=== PATIENT | female | born 1980 | race Caucasian/White ===

== ENCOUNTER 2019-02-12 13:21 | Emergency (ER) | payer OTHER ==
[~2019-02-12] VITALS: Ht 170.2 cm; Wt 99.8 kg
[2019-02-12] MEDS ORDERED: NEURONTIN600 MG PO (14:00)
[2019-02-12] MEDS ORDERED: PROMS25 WY RECTAL (14:00)
[2019-02-12] MEDS ORDERED: EFFEXOR XR75 MG PO ×3 (14:00→14:02)
[2019-02-12] MEDS ORDERED: VENLAFAXINE HC150 MG PO (14:01)
[2019-02-12] MEDS ORDERED: MELATONIN1 MG PO (14:01)
[2019-02-12] MEDS ORDERED: ATORVASTATIN CA40 MG PO (14:02)
[2019-02-12] MEDS ORDERED: CYCLOBENZAPRINE5 MG PO (14:02)
[2019-02-12] MEDS ORDERED: METFORMIN HCL500 MG PO (14:02)
[2019-02-12] MEDS ORDERED: RESTORIL15 MG PO (14:03)
[2019-02-12 14:04] LABS: ABSOLUTE EOSINOPHILS 0.1 thou/uL (0.0-0.7); ABSOLUTE MONOCYTES 0.5 thou/uL (0.0-1.2); ABSOLUTE NEUTROPHILS 6.8 thou/uL (1.6-8.1); BASOPHILS 0.4 %; EOSINOPHILS 0.6 %; HEMATOCRIT 40.1 % (37.0-47.0); HEMOGLOBIN 13.5 gm/dL (12.0-15.0); LYMPHOCYTES 34.8 %; MCHC 33.6 g/dL (28.0-37.0); MCV 86.4 fL (80.0-100.0); MONOCYTES 4.6 %; MPV 8.2 fl. (7.2-11.1); NUCLEATED RBCS 0 /100WBC; PLATELET COUNT* 305 thou/uL (150-400); POLYS 59.6 %; RBC 4.65 mil/uL (4.20-5.00); RDW-CV 13.7 % (10.5-14.5); WBC 11.4 thou/uL (4.0-11.0)
[2019-02-12 14:09] LABS: ANION GAP 15 mmol/L (7-16); BUN 9 mg/dL (7-18); CALCIUM 8.5 mg/dL (8.5-10.1); CHLORIDE 105 mmol/L (98-107); CO2 22 mmol/L (21-32); GLUCOSE 159 mg/dL (70-99); POTASSIUM 3.7 mmol/L (3.5-5.1); PROTIME 9.8 Seconds (9.20-11.50); SODIUM 142 mmol/L (136-145)
[2019-02-12 14:19] LABS: ALBUMIN 3.5 g/dL (3.4-5.0); ALKALINE PHOSPHATASE 101 U/L (46-116); LIPASE 164 U/L (73-393); NT-PRO BRAIN NAT PEPTIDE 43 pg/mL (<300); SGOT 15 U/L (15-37); SGPT 34 U/L (30-65); TOTAL BILIRUBIN 0.2 mg/dL (<0.1-1.0); TOTAL PROTEIN 7.6 g/dL (6.4-8.2); TROPONIN-I LEVEL <0.06 ng/mL (<0.06)
[2019-02-12 14:45] VITALS: BP 119/76
--- NOTE | 2019-02-12 15:31 | EKG ---
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1980 Requested By: Hernando Reardon Order Number: [id number] MD: Braulio Quiñonez Measurements Intervals Calvin Rate: 85 P: 23 OR: 155 QRS: 79 QRSD: 92 T: 40 QT: 374 QTc: 445 Interpretive Statements Sinus rhythm Low voltage, precordial leads Borderline T abnormalities, anterior leads No previous ECG available for comparison Electronically Signed On 02-12-2019 15:31:17 CDT by Braulio Quiñonez [email or web address] <ELECTRONICALLY SIGNED> By: Braulio Quiñonez MD, [facility] 02/12/19 1531 1326 1326 Braulio Quiñonez MD, FACC /EPI
== END 2019-02-12 14:47 | disposition home or self-care (01) ==
LOC: M.ERS 13:21
PROVIDERS: Emergency Medicine
DX: R07.89 Other chest pain (principal); I10 Essential (primary) hypertension; E11.9 Type 2 diabetes mellitus without complications; E78.5 Hyperlipidemia, unspecified; Z88.2 Allergy status to sulfonamides; Z91.040 Latex allergy status; Z88.8 Allergy status to other drugs, medicaments and biological substances

== ENCOUNTER 2019-03-08 15:43 | Inpatient (IN) | payer OTHER ==
[2019-03-06 12:30] VITALS: BP 130/100
[2019-03-06 16:15] VITALS: BP 130/100
[~2019-03-08] VITALS: Ht 165.1 cm; Wt 117.9 kg
--- NOTE | ~2019-03-08 | CON ---
[address] [address] CONSULTATION Name: POONAM BABB Room: [address] IN .R.#: [id number] Admission: 03/08/19 Attend Phys: Arnav Li, Discharge: 03/10/19 Date of : 78 Report #: [id number] THIS REPORT FOR: //name// CC: [facility] physician/PCP Arnav Li DATE OF SERVICE: 03/09/2019 HISTORY OF PRESENT ILLNESS: The patient is a 38-year-old female who states that she had trembling of the extremities prior to arrival. The patient was unaware of this. Apparently, she had been vomiting for 3 days. As she went to get off the couch, she had a cramp in her calf and then lost consciousness. When family came down the steps, they noticed some shaking and then the patient became unresponsive. She fell forward and hit her head on the ground. Apparently, the patient was recently here at [facility] for a possible heart attack. The patient states that she does not feel as though she is spinning. She just feels lightheaded. She has trouble sleeping at night. She is on gabapentin for back pain and the dose was recently increased, but she tells me she really only takes the medication at bedtime. She was given gabapentin for back pain. She also tells me she has trouble sleeping at night and takes Restoril at bedtime. PAST MEDICAL HISTORY: Insomnia, anxiety, depression, diabetes, heart failure. PAST SURGICAL HISTORY: Unremarkable. MEDICATIONS: At home, gabapentin 600 mg at bedtime, venlafaxine 150 mg daily, atorvastatin 40 mg at bedtime, cyclobenzaprine 5 mg t.i.d. p.r.n., metformin 1000 mg b.i.d., temazepam 22.5 mg at bedtime, torsemide 20 mg daily, potassium 10 mEq daily. ALLERGIES: ADHESIVE, LATEX, MELOXICAM, BACTRIM. VITAL SIGNS: Temperature is 36.9, pulse rate 83, respiratory rate 16, blood pressure 115/67, bedside pulse oximetry 96% on room air. LABORATORY DATA: Hematology: White blood cell count 17.6, hemoglobin 15.3, hematocrit 44.8, MCV 84, platelet count 237,000. INR 1. Urinalysis: Trace blood, nitrite positive, leukocyte esterase negative. Chemistry: Sodium 134, potassium 3.3, chloride 90, carbon dioxide 30, BUN 20, creatinine 1.3, glucose 120. Liver functions normal. Drug screen negative. IMAGING STUDIES: CT scan of the head demonstrates no acute intracranial process. CT scan of the cervical spine demonstrates mild degenerative disk disease at C5-C6 and C6-[place] [address] CONSULTATION Name: POONAM BABB Room: [address]#: [id number] Admission: 03/08/19 Attend Phys: Arnav Li, Discharge: 03/10/19 Date of : 78 Report #: [id number] NEUROLOGIC: Cranial nerves 2-12 are grossly intact. Motor exam demonstrates symmetrical strength in all 4 extremities with tone and bulk normal. Reflexes are symmetrical. Plantar responses are flexor. Coordination demonstrates no evidence of dysmetria. IMPRESSION: The patient denies vertigo, but does admit to feeling lightheaded. I have discontinued gabapentin and have changed cyclobenzaprine to 5 mg at bedtime to help her sleep at night since she has difficulty with insomnia. I see Restoril has not been prescribed for the patient and I do agree that this should be held to see if some of her symptoms improve. It is possible that some of her symptoms are related to a medication effect. I will order an electroencephalogram for tomorrow. Apparently, this patient has a cardiac history and I think a Cardiology consult should be considered as well. I thank you for your kind referral of the patient. By: 1535 Tiago Hardy DO /michaelle
--- NOTE | ~2019-03-08 | EEG ---
[address] [address] EEG STUDY REPORT Name: POONAM BABB Room: [address]#: [id number] Admission: 03/08/19 Attend Phys: Arnav Li, Discharge: 03/10/19 Date of : 78 Report #: [id number] THIS REPORT FOR: //name// CC: [facility] physician/PCP Arnav Li HISTORY: The patient is a 38-year-old female with a syncopal episode. An EEG is requested for further evaluation. DESCRIPTION: The awake record consists of symmetric moderate amplitude 9-10 Hz posterior dominant rhythm, which attenuates with eye opening. Stage 1 sleep is characterized by attenuation of the background record. Photic stimulation is nonactivating. No focal abnormalities or epileptiform discharges were noted. IMPRESSION: This is a normal adult awake to stage 1 sleep record. No focal abnormalities or epileptiform discharges are noted. By: 1235 [id number] Hardy DO /michaelle
--- NOTE | ~2019-03-08 | CON ---
[address] [address] CONSULTATION Name: POONAM BABB Room: [address] IN .R.#: [id number] Admission: 03/08/19 Attend Phys: Arnav Li, Discharge: 03/10/19 Date of : 78 Report #: [id number] THIS REPORT FOR: //name// CC: [facility] physician/PCP Arnav Li PCP: Dr. Naqvi. CHIEF COMPLAINT: Syncopal episode. HISTORY OF PRESENT ILLNESS: The patient is a 38-year-old female who presented to the Emergency Room with a syncopal episode of nausea, vomiting, weakness. She did not have chest pain. She did not have palpitation. She does not have any dysrhythmia on cardiac monitoring. She has remained in sinus rhythm. Her presenting ECG showed some nonspecific findings. She is a tobacco user. She has an extensive cardiac workup at both [facility] and [facility] when she was having significant edema symptoms that included the left heart catheterization, which was normal at and then the right heart catheterization, which was normal at [facility]. She is also on cardiac monitors and had stress test. None of these records are available. They were all performed within the last 2-3 years. The patient has a history of obesity, tobacco use. ALLERGIES: ADHESIVE, LATEX, MELOXICAM, TRIMETHOPRIM SULFA. HOME MEDICATIONS: Include mostly diuretic torsemide 20 mg daily, potassium chloride 10 mEq daily for her chronic lower extremity edema, metformin, atorvastatin, venlafaxine, gabapentin, promethazine. SOCIAL HISTORY: Tobacco use currently. No drug use. REVIEW OF SYSTEMS: GENERAL: No fevers or chills. PULMONARY: Positive shortness of breath, positive cough. NEUROLOGIC: Denies headaches or blurry vision. Positive syncopal episode, questionable seizures. EEG was negative PSYCHIATRIC: Positive depression. Positive anxiety. CARDIOVASCULAR: No exertional chest pain, no orthopnea, no pain. Positive dyspnea on exertion. No history of murmur. GENITOURINARY: No dysuria or hematuria. HEMATOLOGIC: No anemia or bleeding disorders. RENAL: No history of kidney failure. ALLERGIES: Denies any contrast allergies. EYES: Denies any blurred vision [place] [address] CONSULTATION Name: POONAM BABB Room: [address]#: [id number] Admission: 03/08/19 Attend Phys: Arnav Li, Discharge: 03/10/19 Date of : 78 Report #: [id number] THROAT: Denies any dysphagia. PHYSICAL EXAMINATION: VITAL SIGNS: Blood pressure is 119/65, sinus rhythm is 71, temperature is 36.7. GENERAL: Pleasant, obese female. She is alert, oriented, no apparent distress. HEENT: Eyes are intact. No facial asymmetry. NECK: Supple. No jugular venous distention. CARDIOVASCULAR: Regular. I cannot hear a murmur. LUNGS: Clear to auscultation. ABDOMEN: Soft, nontender. EXTREMITIES: No peripheral edema. LABORATORY DATA: Electrocardiogram shows a sinus rhythm. There is a nonspecific T-wave abnormality. QRS is normal. QT interval is normal. Hemoglobin is 11.7, white blood cell count is 10.9. Sodium is 143, potassium is 4.3, chloride is 105, BUN is 13, creatinine is 0.8. Chest x-ray shows no acute cardiopulmonary abnormality. Head CT shows no acute intracranial process. IMPRESSION AND PLAN: 1. Abnormal ECG. Given that she has a full cardiac workup within the last 5 years including coronary arteriograms, I do not think this is a specific finding. She probably has secondary right heart strain from obesity related right heart failure and/or obstructive lung disease. 2. Syncopal episode. Neurologic workup has been completed including imaging and EEG, which apparently was unremarkable. I do not see evidence of cardiac dysrhythmia on cardiac telemetry. She will routinely follow up with her usual valance cutter for further evaluation if necessary. By: 1252 [id number] Andrade MD, FACC /nt
[~2019-03-08 15:43] MED LIST: ATORVASTATIN CA40 MG PO; CYCLOBENZAPRINE5 MG PO; EFFEXOR XR75 MG PO; MELATONIN1 MG PO; METFORMIN HCL500 MG PO; NEURONTIN600 MG PO; PROMS25 WY RECTAL; RESTORIL15 MG PO; VENLAFAXINE HC150 MG PO
[2019-03-08 15:54] VITALS: BP 149/103
[2019-03-08] MEDS ORDERED: KLOR-CON 1010 MEQ PO (15:59)
[2019-03-08] MEDS ORDERED: DEMADEX20 MG PO (15:59)
[2019-03-08 17:14] LABS: ABSOLUTE BASOPHILS 0.1 thou/uL (0.0-0.2); ABSOLUTE LYMPHOCYTES 2.8 thou/uL (0.8-5.3); ABSOLUTE MONOCYTES 1.4 thou/uL (0.0-1.2); ABSOLUTE NEUTROPHILS 13.3 thou/uL (1.6-8.1); BASOPHILS 0.4 %; EOSINOPHILS 0.2 %; HEMATOCRIT 44.8 % (37.0-47.0); HEMOGLOBIN 15.3 gm/dL (12.0-15.0); LYMPHOCYTES 15.8 %; MCH 28.7 pg (26.0-34.0); MCHC 34.1 g/dL (28.0-37.0); MONOCYTES 7.8 %; MPV 8.2 fl. (7.2-11.1); NUCLEATED RBCS 0 /100WBC; PLATELET COUNT* 357 thou/uL (150-400); POLYS 75.8 %; RBC 5.33 mil/uL (4.20-5.00); RDW-CV 13.3 % (10.5-14.5); WBC 17.6 thou/uL (4.0-11.0)
[2019-03-08 17:20] LABS: ANION GAP 14 mmol/L (7-16); BUN 20 mg/dL (7-18); CALCIUM 8.5 mg/dL (8.5-10.1); CHLORIDE 90 mmol/L (98-107); CO2 30 mmol/L (21-32); CREATININE 1.3 mg/dL (0.6-1.3); GLUCOSE 120 mg/dL (70-99); SODIUM 134 mmol/L (136-145)
[2019-03-08 17:24] LABS: APTT 26.7 Seconds (25.0-31.3); POTASSIUM 2.9 mmol/L (3.5-5.1); PROTIME 10.6 Seconds (9.20-11.50)
[2019-03-08 17:33] LABS: ALBUMIN 4.1 g/dL (3.4-5.0); ALKALINE PHOSPHATASE 97 U/L (46-116); LIPASE 162 U/L (73-393); SGOT 16 U/L (15-37); SGPT 37 U/L (30-65); TOTAL BILIRUBIN 0.7 mg/dL (<0.1-1.0); TOTAL PROTEIN 8.6 g/dL (6.4-8.2); TROPONIN-I LEVEL <0.06 ng/mL (<0.06)
[2019-03-08 19:23] LABS: URINE BILIRUBIN NEGATIVE (Negative); URINE BLOOD TRACE (Negative); URINE CLARITY CLEAR; URINE COLOR YELLOW; URINE GLUCOSE-RANDOM NEGATIVE (Negative); URINE KETONES NEGATIVE (Negative); URINE LEUKOCYTES-REFLEX NEGATIVE (Negative); URINE PROTEIN NEGATIVE (Negative); URINE SPECIFIC GRAVITY <= 1.005 (1.005-1.030); URINE UROBILINOGEN 0.2 E.U./dl (0.2-1.0)
[2019-03-08 19:29] LABS: URINE NITRITE-REFLEX POSITIVE (Negative)
[2019-03-08 19:30] LABS: AMP/METHAMP Negative (Negative); BARBITURATES Negative (Negative); BENZODIAZEPINES Negative (Negative); COCAINE Negative (Negative); METHADONE Negative (Negative); OPIATES Negative (Negative); PCP Negative (Negative); THC Negative (Negative)
[2019-03-08 19:49] LABS: HYALINE CASTS 0-3 Few /LPF (None Seen); SQUAMOUS 4-10 Moderate /LPF (0-3); URINE WBC-REFLEX 0-5 Rare /HPF (0-5)
[2019-03-08 19:50] LABS: BACTERIA-REFLEX >30 Many /HPF (None Seen); CRYSTALS None Seen /LPF (None Seen); URINE RBC 0-2 Rare /HPF (0-2)
[2019-03-08 20:00] VITALS: BP 123/79
[2019-03-08 20:10] VITALS: BP 121/75
[2019-03-09] VITALS (10 sets, daily range): BP systolic 106–136; BP diastolic 66–82
[2019-03-09 02:14] LABS: MAGNESIUM 2.3 mg/dL (1.8-2.4); POTASSIUM 3.3 mmol/L (3.5-5.1)
--- NOTE | 2019-03-09 10:45 | EKG ---
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1980 Requested By: David Bates Order Number: [id number] MD: Braulio Quiñonez Measurements Intervals [place] Rate: 100 P: 48 MI: 144 QRS: 97 QRSD: 94 T: 235 QT: 371 QTc: 479 Interpretive Statements Sinus tachycardia Probable left atrial enlargement Borderline right axis deviation Abnormal T, consider ischemia, diffuse leads Baseline wander in lead(s) V5 Compared to ECG 02/12/2019 13:26:57 Possible ischemia now present Sinus rhythm no longer present T-wave abnormality still present Electronically Signed On 03-09-2019 10:45:26 CDT by Braulio Quiñonez [email or web address] <ELECTRONICALLY SIGNED> By: Braulio Quiñonez MD, FAC 03/09/19 1045 1707 1707 Braulio Quiñonez MD, FAC /EPI
[2019-03-10] VITALS: BP 112/56
[2019-03-10 03:57] VITALS: BP 124/52
[2019-03-10 05:40] LABS: HEMATOCRIT 35.1 % (37.0-47.0); MCH 28.8 pg (26.0-34.0); MCHC 33.3 g/dL (28.0-37.0); MCV 86.3 fL (80.0-100.0); MPV 8.6 fl. (7.2-11.1); RBC 4.06 mil/uL (4.20-5.00); RDW-CV 13.3 % (10.5-14.5); WBC 10.9 thou/uL (4.0-11.0)
[2019-03-10 05:46] LABS: HEMOGLOBIN 11.7 gm/dL (12.0-15.0)
[2019-03-10 05:59] LABS: ALBUMIN 2.8 g/dL (3.4-5.0); CALCIUM 8.8 mg/dL (8.5-10.1); CREATININE 0.8 mg/dL (0.6-1.3); MAGNESIUM 1.6 mg/dL (1.8-2.4); POTASSIUM 4.3 mmol/L (3.5-5.1); TOTAL BILIRUBIN 0.2 mg/dL (<0.1-1.0); TOTAL PROTEIN 6.1 g/dL (6.4-8.2)
[2019-03-10 09:05] VITALS: BP 126/64
[2019-03-10 12:15] VITALS: BP 119/65
[2019-03-10 16:20] VITALS: BP 119/65
== END 2019-03-10 17:24 | disposition home or self-care (01) | DRG 872 ==
LOC: M.ERS 15:43 → M.2W 17:33 → M.TBA-ER 17:33 → M.2W 20:07
PROVIDERS: Physician Assistant; ADMIT Family Medicine
DX: A41.9 Sepsis, unspecified organism (principal); N39.0 Urinary tract infection, site not specified; Z68.41 Body mass index [BMI] 40.0-44.9, adult; E87.6 Hypokalemia; F41.9 Anxiety disorder, unspecified; F32.9 Major depressive disorder, single episode, unspecified; G47.00 Insomnia, unspecified; E66.01 Morbid (severe) obesity due to excess calories; I50.9 Heart failure, unspecified; K76.0 Fatty (change of) liver, not elsewhere classified; R73.03 Prediabetes; E88.81 Metabolic syndrome and other insulin resistance; E83.42 Hypomagnesemia; R94.31 Abnormal electrocardiogram [ECG] [EKG]; F17.210 Nicotine dependence, cigarettes, uncomplicated; Z79.84 Long term (current) use of oral hypoglycemic drugs; Z79.899 Other long term (current) drug therapy; Z88.8 Allergy status to other drugs, medicaments and biological substances; Z88.1 Allergy status to other antibiotic agents; Z91.040 Latex allergy status; Z83.6 Family history of other diseases of the respiratory system; Z82.49 Family history of ischemic heart disease and other diseases of the circulatory system

== ENCOUNTER 2019-09-03 13:24 | Emergency (ER) | payer OTHER ==
[~2019-09-03] VITALS: Ht 165.1 cm; Wt 113.4 kg
[~2019-09-03 13:24] MED LIST changes: +DEMADEX20 MG PO; +KLOR-CON 1010 MEQ PO
[2019-09-03] MEDS ORDERED: CRESTOR10 MG PO (13:38)
[2019-09-03] MEDS ORDERED: ATIVAN1 M1 PO (13:39)
[2019-09-03] MEDS ORDERED: WELLBUTRIN 100100 MG PO (13:39)
[2019-09-03 14:21] LABS: ABSOLUTE BASOPHILS 0.2 thou/uL (0.0-0.2); ABSOLUTE EOSINOPHILS 0.1 thou/uL (0.0-0.7); ABSOLUTE LYMPHOCYTES 3.9 thou/uL (0.8-5.3); ABSOLUTE MONOCYTES 0.7 thou/uL (0.0-1.2); ABSOLUTE NEUTROPHILS 7.5 thou/uL (1.6-8.1); BASOPHILS 1.2 %; EOSINOPHILS 0.6 %; HEMATOCRIT 37.5 % (37.0-47.0); HEMOGLOBIN 12.9 gm/dL (12.0-15.0); LYMPHOCYTES 31.4 %; MCH 28.8 pg (26.0-34.0); MCHC 34.4 g/dL (28.0-37.0); MCV 83.7 fL (80.0-100.0); MONOCYTES 5.5 %; MPV 7.6 fl. (7.2-11.1); NUCLEATED RBCS 0 /100WBC; PLATELET COUNT* 341 thou/uL (150-400); POLYS 61.3 %; RBC 4.47 mil/uL (4.20-5.00); RDW-CV 14.9 % (10.5-14.5); WBC 12.3 thou/uL (4.0-11.0)
[2019-09-03 14:31] LABS: CALCIUM 9.1 mg/dL (8.5-10.1); CREATININE 0.9 mg/dL (0.6-1.3); POTASSIUM 4.1 mmol/L (3.5-5.1)
[2019-09-03 14:34] LABS: APTT 25.9 Seconds (25.0-31.3)
[2019-09-03 14:36] LABS: ALBUMIN 3.6 g/dL (3.4-5.0); TOTAL BILIRUBIN 0.3 mg/dL (<0.1-1.0); TOTAL PROTEIN 7.5 g/dL (6.4-8.2)
--- NOTE | 2019-09-03 15:56 | EKG ---
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1980 Requested By: David Bates Order Number: [id number] MD: Braulio Quiñonez Measurements Intervals [place] Rate: 93 P: 16 AR: 147 QRS: 77 QRSD: 90 T: -4 QT: 376 QTc: 468 Interpretive Statements Sinus rhythm Probable left atrial enlargement Low voltage, precordial leads Borderline T abnormalities, anterior leads Compared to ECG 03/08/2019 17:07:29 Low QRS voltage now present Sinus tachycardia no longer present Possible ischemia no longer present T-wave abnormality still present Electronically Signed On 09-03-2019 15:56:21 HI [employer] by Braulio Quiñonez [email or web address] <ELECTRONICALLY SIGNED> By: Braulio Quiñonez MD, FACC 09/03/19 1556 1438 1438 Braulio Quiñonez MD, FAC /EPI
[2019-09-03] MEDS ORDERED: MECLIZINE HCL25 MG PO (16:22)
[2019-09-03] MEDS ORDERED: TRANSDERM-SCOP1 EACH TRANSDERM (16:22)
[2019-09-03 16:38] LABS: URINE BILIRUBIN NEGATIVE (Negative); URINE BLOOD NEGATIVE (Negative); URINE CLARITY HAZY; URINE COLOR YELLOW; URINE GLUCOSE-RANDOM NEGATIVE (Negative); URINE KETONES TRACE (Negative); URINE LEUKOCYTES-REFLEX NEGATIVE (Negative); URINE NITRITE-REFLEX POSITIVE (Negative); URINE PROTEIN NEGATIVE (Negative); URINE SPECIFIC GRAVITY 1.025 (1.005-1.030); URINE UROBILINOGEN 0.2 E.U./dl (0.2-1.0)
[2019-09-03 16:45] LABS: AMP/METHAMP Negative (Negative); BARBITURATES Negative (Negative); BENZODIAZEPINES Negative (Negative); COCAINE Negative (Negative); METHADONE Negative (Negative); OPIATES Negative (Negative); PCP Negative (Negative); THC Negative (Negative)
[2019-09-03] MEDS ORDERED: KEFLEX500 M1 PO (16:54)
[2019-09-03 16:58] LABS: BACTERIA-REFLEX >30 Many /HPF (None Seen); CASTS None Seen /LPF (None Seen); CRYSTALS None Seen /LPF (None Seen); SQUAMOUS >10 Many /LPF (0-3); URINE RBC None Seen /HPF (0-2); URINE WBC-REFLEX 6-15 Few /HPF (0-5)
[2019-09-03 17:13] VITALS: BP 129/80
== END 2019-09-03 17:00 | disposition home or self-care (01) ==
LOC: M.ERS 13:24
PROVIDERS: Physician Assistant
DX: M25.561 Pain in right knee (principal); N39.0 Urinary tract infection, site not specified; R42 Dizziness and giddiness; R55 Syncope and collapse; F17.210 Nicotine dependence, cigarettes, uncomplicated; F41.9 Anxiety disorder, unspecified; F32.9 Major depressive disorder, single episode, unspecified; Z90.710 Acquired absence of both cervix and uterus; Z88.2 Allergy status to sulfonamides; Z88.1 Allergy status to other antibiotic agents; Z91.040 Latex allergy status; Z88.8 Allergy status to other drugs, medicaments and biological substances; Z79.899 Other long term (current) drug therapy

== ENCOUNTER → 2019-09-21 | Outpatient (CLI) | payer OTHER ==
[~2019-09-21] MED LIST changes: +ATIVAN1 M1 PO; +CRESTOR10 MG PO; +KEFLEX500 M1 PO; +MECLIZINE HCL25 MG PO; +TRANSDERM-SCOP1 EACH TRANSDERM; +WELLBUTRIN 100100 MG PO
== END ==
LOC: M.MRI 11:30
DX: M25.461 Effusion, right knee (principal)

== ENCOUNTER → 2020-03-17 | Outpatient (CLI) | payer OTHER | LOC: M.ULTRA 03-14 13:00 | PROVIDERS: ATTEND Registered Nurse Diabetes Educator | DX: E83.52 Hypercalcemia (principal); Z79.899 Other long term (current) drug therapy ==

== ENCOUNTER 2021-10-07 11:31 | Emergency (ER) | payer OTHER ==
[~2021-10-07] VITALS: Ht 165.1 cm; Wt 113.4 kg
[2021-10-07] MEDS ORDERED: NAPROSYN500 M1 PO (14:15)
[2021-10-07 14:23] VITALS: BP 132/70
== END 2021-10-07 14:24 | disposition home or self-care (01) ==
LOC: M.ERS 11:31
DX: S83.92XA Sprain of unspecified site of left knee, initial encounter (principal); S93.402A Sprain of unspecified ligament of left ankle, initial encounter; S93.602A Unspecified sprain of left foot, initial encounter; F41.9 Anxiety disorder, unspecified; F32.9 Major depressive disorder, single episode, unspecified; E66.01 Morbid (severe) obesity due to excess calories; E11.9 Type 2 diabetes mellitus without complications; F17.210 Nicotine dependence, cigarettes, uncomplicated; Z90.710 Acquired absence of both cervix and uterus; Z79.84 Long term (current) use of oral hypoglycemic drugs; Z79.899 Other long term (current) drug therapy; Z88.2 Allergy status to sulfonamides; Z88.8 Allergy status to other drugs, medicaments and biological substances; Z91.02 Food additives allergy status; Z91.040 Latex allergy status; W01.0XXA Fall on same level from slipping, tripping and stumbling without subsequent striking against object, initial encounter; Y93.89 Activity, other specified; Y92.89 Other specified places as the place of occurrence of the external cause; Y99.8 Other external cause status